=== PATIENT | female | born 1985 | race African-American/Black ===

== ENCOUNTER 2017-09-25 01:10 | Emergency (ER) | payer OTHER, SELFPAY ==
[2017-09-25 01:46] LABS: Hemoglobin 13.9 g/dL (12.0-16.0); Mean Corpuscular HGB CONC 33.4 g/dL (32.0-36.0); Mean Corpuscular Hemoglobin 24.9 pg (27.0-31.0); Mean Corpuscular Volume 74.7 fL (78.0-98.0); Mean Platelet Volume 8.2 fL (7.4-10.4); Platelet Count 295 thou/uL (130-400); RBC Distribution Width 13.8 % (11.5-14.5); Red Blood Cell (RBC) Count 5.58 mill/uL (4.20-5.40); White Blood Cell (WBC) Count 11.3 thou/uL (4.8-10.8)
[2017-09-25 01:57] LABS: #Basophils 0.1 thou/uL (0.0-0.2); #Eosinphils 0.1 thou/uL (0.0-0.7); #Lymphocytes 4.2 thou/uL (1.20-3.40); #Monocytes 0.5 thou/uL (0.11-0.59); #Neutrophils 6.4 thou/uL (1.40-6.50); %Basophils 0.8 % (0.0-1.0); %Eosinophils 1.3 % (0.0-10.0); %Lymphocytes 36.7 % (21.0-51.0); %Monocytes 4.7 % (0.0-10.0); %Neutrophils 56.5 % (42.0-75.0); RBC Morphology Normal
[2017-09-25 02:06] LABS: ALT (SGPT) 17 U/L (8-55); AST (SGOT) 11 U/L (5-34); Albumin 4.4 g/dL (3.5-5.0); Alkaline Phosphatase 101 U/L (40-150); Anion Gap 17 mmol/L (10-20); BUN (Urea Nitrogen) 14 mg/dL (7.0-18.7); Bilirubin, Total 0.5 mg/dL (0.2-1.2); CK (CPK) 72 U/L (29-168); Calc. Creatinine Clearance 0 mL/min (70-130); Calcium 9.8 mg/dL (7.8-10.44); Carbon Dioxide 18 mmol/L (22-29); Chloride 100 mmol/L (98-107); Estimated GFR-MDRD 71; Globulin 3.7 g/dL (2.4-3.5); Glucose 500 mg/dL (70-105); Potassium 3.9 mmol/L (3.5-5.1); Protein, Total 8.1 g/dL (6.0-8.3); Sodium 131 mmol/L (136-145)
[2017-09-25 02:11] LABS: CKMB 0.9 ng/mL (0-6.6); Troponin I Less than 0.010 ng/mL (< 0.028)
[2017-09-25 03:11] LABS: Bilirubin Negative (Negative); Blood, Urine Negative (Negative); Clarity CLEAR (Clear); Glucose, Urine (Dipstick) >=1000 mg/dL (Negative); Leukocyte Negative (Negative); Nitrite Negative (Negative); Protein, Urine (Dipstick) Negative (Neg-Trace); Specific Gravity, Urine 1.043 (1.002-1.036); Urobilinogen 0.2 mg/dL (0.2-1.0)
[2017-09-25 03:13] LABS: Pregnancy Test - Urine (BHCG) Negative (Negative); Pregu Control Background? CLEAR/WHITE (CLR/WHITE); Pregu Control Bar Appear? YES (CONTROL BAR); Specific Gravity 1.043 (1.002-1.036)
[2017-09-25] MEDS ORDERED: Ondansetron HCl/PF 4 MG/2 ML Vial ONE (03:41)
[2017-09-25] MEDS ORDERED: Morphine 4 MG/ML VIAL ONE (03:41)
[2017-09-25 03:46] LABS: Phosphorus 3.4 mg/dL (2.3-4.7)
[2017-09-25] MEDS ORDERED: Fentanyl 100 MCG/2 ML VIAL ONE (03:57)
[2017-09-25 04:16] LABS: Base Excess-Venous -2.1 mmol/L (0 (+/- 2.5)); Bicarbonate (HCO3v) 24.2 mmol/L (1.0-85.0); CO2 Tension (PvCO2) 45.8 mmHg (41.0-51.0); Calcium, Ionized 1.14 mmol/L (1.12-1.32); Hemoglobin - Calc 14.8 g/dL (12.0-18.0); O2 Tension (PvO2) 36.9 mmHg (35.0-45.0); T. Carbon Dioxide 25.6 mmol/L (1.0-85.0); pH (Venous) 7.331 (7.35-7.45)
--- NOTE | 2017-09-25 10:56 | CT ---
PRELIMINARY REPORT/[facility]/EMERGENTY AFTER-HOURS PROCEDURE CT Angiography Chest With Intravenous Contrast CLINICAL HISTORY: 32 years old, female; Left-sided chest pain; SOB onset of 2-3 days ago. TECHNIQUE: Axial computed tomographic angiography images of the chest with intravenous contrast using pulmonary embolism protocol. All CT scans at this facility use at least one of these dose optimization techniqu es: automated exposure control; mA and/or kV adjustment per patient size (includes targeted exams where dose is matched to clinical indication); or iterative reconstruction. MIP reconstructed i mages were created and reviewed. COMPARISON: No relevant prior studies available. FINDINGS: Pulmonary arteries: No acute findings. No pulmonary embolism. Aorta: No acute findings. No thoracic aortic aneurysm. Lungs: No acute findings. No mass. No consolidation. Pleural space: No acute findings. No significant effusion. No pneumothorax. Heart: No acute findings. No cardiomegaly. No significant pericardial effusion. No evidence of RV dys function. Bones/joints: No acute fracture. No dislocation. Soft tissues: No acute findings. Lymph nodes: No acute findings. No enlarged lymph nodes. Upper abdomen: Liver demonstrates fatty infiltration without visible focal mass. IMPRESSION: No pulmonary embolism. No acute thoracic disease. Fatty liver. Thank you for allowing us to participate in the care of your patient. Dictated and Authenticated by: Lucien Luciano MD 09/25/2017 6:27 AM Central Time ([place] & [place]) FINAL REPORT CTA CHEST WITH 3D VOLUME RENDERING: Date: 09/25/17 FINDINGS/IMPRESSION: I agree with the above provided preliminary interpretation from [facility]. There is no evidence of a significant, central pulmonary embolus. Incidental note of hepatic steatosis. Correlate clinically. POS: [facility]
[2017-09-25] MEDS ORDERED: ISOVUE-370 76%-LOCM 1 ML ONE (13:25)
== END 2017-09-25 06:58 | disposition home or self-care (01) ==
LOC: ERS 01:10
DX: R07.89 Other chest pain (principal); R11.2 Nausea with vomiting, unspecified; Z79.4 Long term (current) use of insulin
CPT/HCPCS: 36415; 36416; 71275; 80053; 81003; 81025; 82010; 82330; 82550; 82553; 82803; 83735; 84100; 84484; 85025; 93005; 94760; 96361; 96374; 96375; J2270; J2405; J3010

== ENCOUNTER 2017-09-26 23:51 | Emergency (ER) | payer SELFPAY | END 2017-09-27 00:19 | disposition left against medical advice (07) | LOC: ERS 23:51 | DX: Z53.21 Procedure and treatment not carried out due to patient leaving prior to being seen by health care provider (principal) | CPT/HCPCS: 93005 ==

== ENCOUNTER 2018-03-05 10:21 | Emergency (ER) | payer SELFPAY | END 2018-03-05 11:20 | disposition home or self-care (01) | LOC: SCSER 10:21 | DX: B34.9 Viral infection, unspecified (principal); E11.9 Type 2 diabetes mellitus without complications; Z79.4 Long term (current) use of insulin | CPT/HCPCS: 99283 ==

== ENCOUNTER 2018-04-10 21:15 | Emergency (ER) | payer SELFPAY ==
[2018-04-10 22:00] LABS: ALT (SGPT) 20 U/L (8-55); AST (SGOT) 13 U/L (5-34); Albumin 4.1 g/dL (3.5-5.0); Alkaline Phosphatase 100 U/L (40-150); Anion Gap 16 mmol/L (10-20); BUN (Urea Nitrogen) 14 mg/dL (7.0-18.7); Bilirubin, Total 0.2 mg/dL (0.2-1.2); CK (CPK) 158 U/L (29-168); Calc. Creatinine Clearance 0 mL/min (70-130); Calcium 9.3 mg/dL (7.8-10.44); Carbon Dioxide 22 mmol/L (22-29); Chloride 103 mmol/L (98-107); Estimated GFR-MDRD 73; Globulin 3.4 g/dL (2.4-3.5); Glucose 321 mg/dL (70-105); Lipase 38 U/L (8-78); Potassium 3.5 mmol/L (3.5-5.1); Protein, Total 7.5 g/dL (6.0-8.3); Sodium 137 mmol/L (136-145)
[2018-04-10 22:02] LABS: Eosinophils 3 % (0-10); Hemoglobin 13.5 g/dL (12.0-16.0); Lymphocytes 48 % (21-51); MDiff Complete? YES; Mean Corpuscular HGB CONC 32.9 g/dL (32.0-36.0); Mean Corpuscular Hemoglobin 24.3 pg (27.0-31.0); Mean Corpuscular Volume 73.8 fL (78.0-98.0); Mean Platelet Volume 8.4 fL (7.4-10.4); Microcytosis SLIGHT = 6-15 cells (100X) (0-5/hpf); Monocytes 5 % (0-10); Neutrophil 42 % (42-75); Platelet Count 311 thou/uL (130-400); RBC Distribution Width 13.8 % (11.5-14.5); Reactive Lymphocytes 1 % (0-10); Red Blood Cell (RBC) Count 5.57 mill/uL (4.20-5.40); White Blood Cell (WBC) Count 10.6 thou/uL (4.8-10.8)
--- NOTE | 2018-04-10 22:29 | RAD ---
UPRIGHT PORTABLE CHEST ONE VIEW: 04/10/18 HISTORY: Chest pain. COMPARISON: 12/01/13. FINDINGS: Heart size is within normal limits. The lungs are clear. No pneumonia, edema, pleural effusion or oth er acute process. IMPRESSION: No acute intrathoracic disease. POS: [facility]
== END 2018-04-10 22:25 | disposition home or self-care (01) ==
LOC: SCSER 21:15
DX: R07.89 Other chest pain (principal); E11.9 Type 2 diabetes mellitus without complications; Z79.4 Long term (current) use of insulin
CPT/HCPCS: 71045; 80053; 82550; 82553; 83690; 84484; 85025; 85379; 93005

== ENCOUNTER 2018-07-05 21:25 | Emergency (ER) | payer SELFPAY ==
--- NOTE | 2018-07-05 22:43 | RAD ---
Radiograph right knee 4 views: HISTORY: 33-year-old female with persistent posttraumatic right knee pain after twisting injury one month ago FINDINGS: No fracture, subluxation, or dislocation. Small enthesophytes at the anterior superior pole and anter ior inferior pole of the patella. Joint spaces are maintained without erosions or osteophytes. Small joint effusion. No other osseous abnormality. IMPRESSION: 1. No fracture. 2. Small joint effusion.
== END 2018-07-05 23:05 | disposition home or self-care (01) ==
LOC: SCSER 21:25
DX: M25.561 Pain in right knee (principal); E11.9 Type 2 diabetes mellitus without complications; Z79.4 Long term (current) use of insulin

== ENCOUNTER 2018-07-14 07:26 | Emergency (ER) | payer SELFPAY | END 2018-07-14 07:58 | disposition home or self-care (01) | LOC: SCSER 07:26 | DX: R11.2 Nausea with vomiting, unspecified (principal); R19.7 Diarrhea, unspecified; E11.9 Type 2 diabetes mellitus without complications; Z79.4 Long term (current) use of insulin | CPT/HCPCS: 99283 ==

== ENCOUNTER 2018-07-21 07:34 | Emergency (ER) | payer SELFPAY ==
[2018-07-21] MEDS ORDERED: Ketorolac Tromethamine 30 MG/ML VIAL ONE (07:58)
== END 2018-07-21 09:31 | disposition home or self-care (01) ==
LOC: SCSER 07:34
DX: R51 Headache (principal); E11.9 Type 2 diabetes mellitus without complications; Z79.4 Long term (current) use of insulin
CPT/HCPCS: 96361; 96374; J1885

== ENCOUNTER 2018-08-04 16:27 | Emergency (ER) | payer SELFPAY ==
[2018-08-04] MEDS ORDERED: Bacitracin Zinc 1 Packet ONE (17:31)
== END 2018-08-04 17:49 | disposition home or self-care (01) ==
LOC: SCSER 16:27
DX: E11.621 Type 2 diabetes mellitus with foot ulcer (principal); L97.529 Non-pressure chronic ulcer of other part of left foot with unspecified severity; Z79.4 Long term (current) use of insulin; I10 Essential (primary) hypertension
CPT/HCPCS: 99282

== ENCOUNTER 2018-12-24 09:56 | Emergency (ER) | payer SELFPAY ==
[2018-12-24 10:54] LABS: Hemoglobin 14.9 g/dL (12.0-16.0); Mean Corpuscular HGB CONC 31.8 g/dL (32.0-36.0); Mean Corpuscular Hemoglobin 24.3 pg (27.0-31.0); Mean Corpuscular Volume 76.4 fL (78.0-98.0); Mean Platelet Volume 8.3 fL (7.4-10.4); Platelet Count 317 thou/uL (130-400); RBC Distribution Width 13.2 % (11.5-14.5); Red Blood Cell (RBC) Count 6.12 mill/uL (4.20-5.40); White Blood Cell (WBC) Count 10.2 thou/uL (4.8-10.8)
[2018-12-24 10:59] LABS: #Basophils 0.1 thou/uL (0.0-0.2); #Eosinphils 0.1 thou/uL (0.0-0.7); #Monocytes 0.6 thou/uL (0.11-0.59); #Neutrophils 6.4 thou/uL (1.40-6.50); %Basophils 1.2 % (0.0-1.0); %Eosinophils 1.4 % (0.0-10.0); %Lymphocytes 29.2 % (21.0-51.0); %Monocytes 5.6 % (0.0-10.0); %Neutrophils 62.8 % (42.0-75.0); MDiff Complete? YES; Microcytosis SLIGHT = 6-15 cells (100X) (0-5/hpf); Ovalocytes SLIGHT = 2-5 cells (100X) (0-1/hpf); Platelet Morphology Comment Appears Adequate; Polychromasia SLIGHT = 2-3 cells (100X) (0-2/hpf)
--- NOTE | 2018-12-24 11:00 | RAD ---
PORTABLE CHEST 1 VIEW: Date: 12/24/18 Time: 1018 hours HISTORY: Chest pain. FINDINGS: Comparison made with exam of 04/10/18. The heart size is normal. The lungs are expanded without focal areas of consolidation, pneumothoraces , or pleural effusions. IMPRESSION: No radiographic evidence of acute cardiopulmonary process. POS: [facility]
[2018-12-24 11:03] LABS: ALT (SGPT) 23 U/L (8-55); AST (SGOT) 16 U/L (5-34); Albumin 4.4 g/dL (3.5-5.0); Alkaline Phosphatase 103 U/L (40-110); Anion Gap 16 mmol/L (10-20); BUN (Urea Nitrogen) 12 mg/dL (7.0-18.7); Bilirubin, Total 0.2 mg/dL (0.2-1.2); Calc. Creatinine Clearance 0 mL/min (70-130); Calcium 9.4 mg/dL (7.8-10.44); Carbon Dioxide 23 mmol/L (22-29); Chloride 102 mmol/L (98-107); Estimated GFR-MDRD 79; Globulin 3.3 g/dL (2.4-3.5); Glucose 375 mg/dL (70-105); Potassium 3.7 mmol/L (3.5-5.1); Protein, Total 7.7 g/dL (6.0-8.3); Sodium 137 mmol/L (136-145)
== END 2018-12-24 11:53 | disposition home or self-care (01) ==
LOC: SCSER 09:56
DX: E11.65 Type 2 diabetes mellitus with hyperglycemia (principal); E86.0 Dehydration; Z79.4 Long term (current) use of insulin; D64.9 Anemia, unspecified
CPT/HCPCS: 36416; 71045; 80053; 84484; 85025; 93005; 96360

== ENCOUNTER 2019-03-29 17:24 | Emergency (ER) | payer SELFPAY ==
--- NOTE | 2019-03-29 19:29 | RAD ---
Exam: Chest one view HISTORY:Chest pain. Headache. Comparison: 12/24/2018 FINDINGS: Cardiac silhouette: Normal Aorta: Unremarkable Pulmonary vessels: Normal Costophrenic angles: Clear LUNGS: No masses or consolidation. Pneumothorax: None Osseous abnormalities: None IMPRESSION: No acute cardiopulmonary process.
[2019-03-29 19:36] LABS: #Eosinphils 0.3 thou/uL (0.0-0.7); #Monocytes 0.6 thou/uL (0.11-0.59); #Neutrophils 8.1 thou/uL (1.40-6.50); %Basophils 0.2 % (0.0-1.0); %Eosinophils 2.2 % (0.0-10.0); %Lymphocytes 24.8 % (21.0-51.0); %Neutrophils 67.9 % (42.0-75.0); Hemoglobin 12.3 g/dL (12.0-16.0); Mean Corpuscular Hemoglobin 24.8 pg (27.0-31.0); Mean Corpuscular Volume 77.4 fL (78.0-98.0); Mean Platelet Volume 8.2 fL (7.4-10.4); Platelet Count 324 thou/uL (130-400); Red Blood Cell (RBC) Count 4.99 mill/uL (4.20-5.40)
[2019-03-29 19:47] LABS: Bilirubin Negative (Negative); Blood, Urine Negative (Negative); Clarity Clear (Clear); Glucose, Urine (Dipstick) Normal (Negative); Leukocyte Negative Leu/uL (Negative); Nitrite Negative (Negative); Protein, Urine (Dipstick) Negative (Neg-Trace); Urobilinogen Normal mg/dL (Less than 2)
[2019-03-29 19:51] LABS: Pregnancy Test - Urine (BHCG) Negative (Negative); Specific Gravity 1.007 (1.002-1.036)
[2019-03-29 19:52] LABS: Pregu Control Background? CLEAR/WHITE (CLR/WHITE); Pregu Control Bar Appear? YES (CONTROL BAR)
[2019-03-29] MEDS ORDERED: Ketorolac Tromethamine 30 MG/ML VIAL ONE (19:55)
[2019-03-29] MEDS ORDERED: Meclizine HCl 25 MG TAB ONE (19:59)
[2019-03-29 20:11] LABS: ALT (SGPT) 19 U/L (8-55); AST (SGOT) 13 U/L (5-34); Albumin 4.2 g/dL (3.5-5.0); Alkaline Phosphatase 80 U/L (40-110); Anion Gap 13 mmol/L (10-20); BUN (Urea Nitrogen) 7 mg/dL (7.0-18.7); Bilirubin, Total 0.4 mg/dL (0.2-1.2); Calcium 9.3 mg/dL (7.8-10.44); Carbon Dioxide 22 mmol/L (22-29); Chloride 108 mmol/L (98-107); Globulin 2.9 g/dL (2.4-3.5); Glucose 201 mg/dL (70-105); Potassium 3.7 mmol/L (3.5-5.1); Protein, Total 7.1 g/dL (6.0-8.3); Sodium 139 mmol/L (136-145)
[2019-03-29 20:12] LABS: Calc. Creatinine Clearance 0 mL/min (70-130); Estimated GFR-MDRD Greater than 90
--- NOTE | 2019-03-29 20:37 | CT ---
Exam: Head CT without contrast HISTORY: Syncope, dizziness, headache COMPARISON: 08/06/2012 FINDINGS: Hemorrhage: No intraparenchymal hemorrhage or extra-axial hematoma. Brain parenchyma: Cortical alan-white matter differentiation is preserved. No mass effect or midline shift. Basilar cisterns are patent. Ventricular system: Ventricles and sulci are patent and symmetric. Calvarium: Intact. Sinuses and mastoid air cells: Adequate aeration. IMPRESSION: No acute intracranial process.
[2019-03-29 22:23] LABS: Troponin I Less than 0.010 ng/mL (< 0.028)
== END 2019-03-29 22:52 | disposition home or self-care (01) ==
LOC: ERS 17:24
DX: G43.909 Migraine, unspecified, not intractable, without status migrainosus (principal); R07.9 Chest pain, unspecified; R55 Syncope and collapse; R42 Dizziness and giddiness; E10.9 Type 1 diabetes mellitus without complications; D64.9 Anemia, unspecified; I10 Essential (primary) hypertension; Z79.899 Other long term (current) drug therapy
CPT/HCPCS: 36415; 70450; 71045; 80053; 81003; 81025; 84484; 85025; 85379; 93005; 96361; 96374; J1885; J8597

== ENCOUNTER 2019-04-07 01:44 | Emergency (ER) | payer SELFPAY ==
[2019-04-07] MEDS ORDERED: traMADol HCl 50 MG TAB ONE (03:44)
== END 2019-04-07 04:00 | disposition home or self-care (01) ==
LOC: ERS 01:44
DX: E11.649 Type 2 diabetes mellitus with hypoglycemia without coma (principal); I10 Essential (primary) hypertension; D64.9 Anemia, unspecified; Z79.899 Other long term (current) drug therapy; Z79.4 Long term (current) use of insulin
CPT/HCPCS: 36416; 99284

== ENCOUNTER 2019-04-15 14:24 | Inpatient (IN) | payer SELFPAY ==
[~2019-04-15 14:24] MED LIST: Iopamidol-370 76% 500 ML 1 ML ONE
[2019-04-15] MEDS ORDERED: Ondansetron PF 4 MG/2 ML Vial ONE ×2 (14:53→14:58)
[2019-04-15] MEDS ORDERED: Ibuprofen 800 MG TAB ONE ×3 (14:53→14:59)
[2019-04-15 15:00] LABS: #Lymphocytes 0.5 thou/uL (1.20-3.40); #Monocytes 0.3 thou/uL (0.11-0.59); #Neutrophils 10.5 thou/uL (1.40-6.50); %Basophils 0.1 % (0.0-1.0); %Eosinophils 0.1 % (0.0-10.0); %Lymphocytes 4.8 % (21.0-51.0); %Monocytes 2.7 % (0.0-10.0); %Neutrophils 92.4 % (42.0-75.0); Hemoglobin 13.4 g/dL (12.0-16.0); Mean Corpuscular HGB CONC 33.1 g/dL (32.0-36.0); Mean Corpuscular Hemoglobin 25.4 pg (27.0-31.0); Mean Corpuscular Volume 76.9 fL (78.0-98.0); Mean Platelet Volume 7.7 fL (7.4-10.4); Platelet Count 326 thou/uL (130-400); RBC Distribution Width 13.7 % (11.5-14.5); Red Blood Cell (RBC) Count 5.25 mill/uL (4.20-5.40); White Blood Cell (WBC) Count 11.4 thou/uL (4.8-10.8)
[2019-04-15 15:09] LABS: BHCG - Serum Negative (NEGATIVE); Pregs Control Background? CLEAR/WHITE (CLR/WHITE); Pregs Control Bar Appear? YES (CONTROL BAR)
[2019-04-15 15:19] LABS: Lipase 18 U/L (8-78); Magnesium 1.5 mg/dL (1.6-2.6); Phosphorus 2.9 mg/dL (2.3-4.7)
[2019-04-15] MEDS ORDERED: Cefepime 2 GM VIAL ONE (15:19)
--- NOTE | 2019-04-15 15:19 | RAD ---
PORTABLE CHEST: Date: 04/15/2019 HISTORY: Syncope. High blood pressure. COMPARISON: 03/29/2019 study. FINDINGS: Heart size and mediastinum within normal limits. Lungs are clear of infiltrates. No significant bony findings. IMPRESSION: No active intrathoracic disease. POS: [facility]
[2019-04-15] MEDS ORDERED: Sodium Chloride 0.9% 100 ML ONE (15:20)
[2019-04-15 15:26] LABS: ALT (SGPT) 65 U/L (8-55); AST (SGOT) 49 U/L (5-34); Albumin 4.5 g/dL (3.5-5.0); Alkaline Phosphatase 97 U/L (40-110); Anion Gap 14 mmol/L (10-20); BUN (Urea Nitrogen) 7 mg/dL (7.0-18.7); Bilirubin, Total 0.4 mg/dL (0.2-1.2); Calc. Creatinine Clearance 0 mL/min (70-130); Calcium 9.4 mg/dL (7.8-10.44); Carbon Dioxide 26 mmol/L (22-29); Chloride 99 mmol/L (98-107); Estimated GFR-MDRD 81; Globulin 3.5 g/dL (2.4-3.5); Glucose 147 mg/dL (70-105); Sodium 136 mmol/L (136-145)
[2019-04-15 15:50] LABS: Bilirubin Negative (Negative); Blood, Urine Negative (Negative); Clarity Clear (Clear); Glucose, Urine (Dipstick) Normal (Negative); Leukocyte Negative Leu/uL (Negative); Mucous/LPF 1+ LPF (<2+); Nitrite Negative (Negative); Protein, Urine (Dipstick) 30 mg/dL (Neg-Trace); RBC/HPF 0-3 HPF (0-3); Urobilinogen Normal mg/dL (Less than 2)
[2019-04-15 15:52] LABS: Bacteria/HPF 1+ HPF (None Seen)
[2019-04-15] MEDS ORDERED: metroNIDAZOLE 500 MG/100 ML BAG ONE (16:01)
[2019-04-15 16:24] LABS: Bicarbonate (HCO3v) 24.2 mmol/L (22.0-28.0); CO2 Tension (PvCO2) 37.2 mmHg (40.0-50.0); Calcium, Ionized 1.09 mmol/L (See Comments:); Chloride 101 mmol/L (98-107); Sodium 137 mmol/L (138-145); T. Carbon Dioxide 25.4 mmol/L (22.0-28.0); vO2 Saturation-calc 87.4 % (60.0-85.0)
--- NOTE | 2019-04-15 16:38 | CT ---
CT abdomen and pelvis with IV contrast HISTORY: Abdominal pain. Body aches. FINDINGS: Lung bases are clear. Liver remains diffusely hypodense. Small amount of hyperdense materia l now layers within the dependent portion of the gallbladder fundus. No evidence of bowel obstruction. Urinary bladder is unremarkable. At the expected location of the left adnexa, an oval well-circumscribed fluid density lesion is 3.3 c m greatest oblique diameter. No free air or free fluid. IMPRESSION: Right ovarian cyst 3.3 cm. Small amount of biliary sludge within the gallbladder lumen is consistent with chronic gallbladder dy skinesis. No evidence of acute biliary obstruction.
--- NOTE | 2019-04-15 16:47 | ULT ---
GALLBLADDER ULTRASOUND: 04/15/19 HISTORY: Right upper quadrant pain. Real time imaging of the right upper quadrant shows sludge within the gallbladder fundus region. No s tones identified. No gallbladder wall thickening. Technologist states there is a negative ultrasound Lorenzo's sign. Common duct is 4 mm. The liver is of increased echogenicity. It measures approximately 18 cm in length. Right kidney is normal in size and not obstructed. The pancreas is largely obscured. IMPRESSION: 1. Fatty change of the liver which appears borderline size. 2. Sludge within the gallbladder fundus region without any definite stones. Common duct is tanesha l in caliber in the 4 mm range. POS: [facility]
--- NOTE | 2019-04-15 18:22 | PDOC.FPRHP ---
- Allergies/Adverse Reactions Allergies Allergy/AdvReac Type Severity Reaction Status Date / Time apple Allergy Verified 11/27/13 16:09 aspirin Allergy Verified 11/27/13 16:07 blueberry Allergy Verified 11/27/13 16:09 codeine Allergy Verified 11/27/13 16:09 ibuprofen [From Motrin] Allergy Verified 11/27/13 16:09 lemon Allergy Verified 11/27/13 16:09 morphine Allergy Verified 11/27/13 16:09 orange juice Allergy Verified 11/27/13 16:09 Penicillins Allergy Verified 11/27/13 16:09 strawberry Allergy Verified 11/27/13 16:09 KETCHUP Allergy Uncoded 11/27/13 16:09 LIMES Allergy Uncoded 11/27/13 16:09 - Home Medications Medication Instructions Recorded Confirmed Type Insulin Glargine,Hum.Rec.Anlog 20 unit SQ HS #5 pen 11/29/13 Rx [Lantus Solostar] glyBURIDE [Diabeta] 5 mg PO BID #60 tab 11/29/13 Rx metFORMIN [Glucophage] 1,000 mg PO BID-WM #60 tab 11/29/13 Rx - History PMHx: PSHx: FHx: Social: - Vital signs BP: 140/91 HR: 119 RR: 17 Tmax: 99.7 Pox: 97% on RA Wt: 102 kg FMR H&P: Results - Labs Result Diagrams: 04/15/19 14:41 04/15/19 14:41 Lab results: WBC 11.4 thou/uL (4.8-10.8) H 04/15/19 14:41 Hgb 13.4 g/dL (12.0-16.0) 04/15/19 14:41 Hct 40.4 % (36.0-47.0) 04/15/19 14:41 MCV 76.9 fL (78.0-98.0) L 04/15/19 14:41 Plt Count 326 thou/uL (130-400) 04/15/19 14:41 Neutrophils % 92.4 % (42.0-75.0) H 04/15/19 14:41 VBG pCO2 37.2 mmHg (40.0-50.0) L 04/15/19 16:22 VBG pO2 52.3 mmHg (35.0-45.0) H 04/15/19 16:22 Sodium 136 mmol/L (136-145) 04/15/19 14:41 Potassium 3.0 mmol/L (3.5-5.1) L 04/15/19 14:41 Chloride 99 mmol/L (98-107) 04/15/19 14:41 Carbon Dioxide 26 mmol/L (22-29) 04/15/19 14:41 BUN 7 mg/dL (7.0-18.7) 04/15/19 14:41 Creatinine 0.95 mg/dL (0.6-1.1) 04/15/19 14:41 Glucose 147 mg/dL (70-105) H 04/15/19 14:41 Lactic Acid 1.1 mmol/L (0.5-2.2) 04/15/19 14:41 Calcium 9.4 mg/dL (7.8-10.44) 04/15/19 14:41 Total Bilirubin 0.4 mg/dL (0.2-1.2) 04/15/19 14:41 AST 49 U/L (5-34) H 04/15/19 14:41 ALT 65 U/L (8-55) H 04/15/19 14:41 Alkaline Phosphatase 97 U/L (40-110) 04/15/19 14:41 Serum Total Protein 8.0 g/dL (6.0-8.3) 04/15/19 14:41 Albumin 4.5 g/dL (3.5-5.0) 04/15/19 14:41 Lipase 18 U/L (8-78) 04/15/19 14:43 Urine Ketones Negative mg/dL (Negative) 04/15/19 15:15 Urine Blood Negative (Negative) 04/15/19 15:15 Urine Nitrite Negative (Negative) 04/15/19 15:15 Ur Leukocyte Esterase Negative Zhou/uL (Negative) 04/15/19 15:15 Urine RBC 0-3 HPF (0-3) 04/15/19 15:15 Urine WBC 4-6 HPF (0-3) A 04/15/19 15:15 Ur Squamous Epith Cells 4-6 HPF (0-3) A 04/15/19 15:15 Urine Bacteria 1+ HPF (None Seen) A 04/15/19 15:15 - Radiology Interpretation US - abdomen Status: image reviewed by me, report reviewed by me Additional comment: sludge in gallbladder, normal CBD CT scan - abdomen Status: report reviewed by me Additional comment: R ovarian cyst Chest x-ray Status: image reviewed by me Additional comment: WNL, no acute abnormalities FMR H&P: Upper Level - Plan Date/Time: 04/15/191821 I, [], have evaluated this patient and agree with findings/plan as outlined by inclusion internship resident. Pertinent changes/additions are listed here.
[2019-04-15] MEDS ORDERED: Ondansetron ODT 4 MG TAB SL PRN (19:14)
[2019-04-15] MEDS ORDERED: Ondansetron PF 4 MG/2 ML Vial IVP PRN (19:14)
[2019-04-15] MEDS ORDERED: Dextrose 50% Abboject 50 ML SYRINGE SLOW IVP PRN (19:36)
[2019-04-15] MEDS ORDERED: HumaLOG 300 UNITS/3 ML VIAL SC PRN (19:36)
[2019-04-15] MEDS ORDERED: Dextrose 5% in Water 1,000 ML IV PRN (19:36)
[2019-04-15] MEDS ORDERED: Potassium Chloride 20 MEQ TAB PO SCH (20:06)
[2019-04-15] MEDS ORDERED: Ondansetron ODT 4 MG TAB PO PRN (20:06)
[2019-04-15 20:28] VITALS: BMI 39.1
[2019-04-15] MEDS: Sodium Chloride 0.9% 1,000 ML IV SCH (21:07)
[2019-04-15] MEDS: Acetaminophen 325 MG TAB PO PRN (22:12)
--- NOTE | 2019-04-15 22:24 | PDOC.FPRHP ---
- History of Present Illness Chief Complaint: feeling bad History of Present Illness: Pt presents with couple day history of diffuse myalgias, fever, chills, and general malaise. She believes she was feeling bad for ~3 weeks but worsened yesterday. Last week she had her metformin increased to 1000 mg bid and has had some stomach upset and diarrhea since then. +vomiting. No melena, hematochezia. No ST, headache, ear pain, chest pain, shortness of breath. ED Course: Given IVF, cefepime, flagyl - Allergies/Adverse Reactions Allergies Allergy/AdvReac Type Severity Reaction Status Date / Time codeine Allergy Severe Anaphylaxis Verified 04/15/19 20:18 morphine Allergy Severe Anaphylaxis Verified 04/15/19 20:18 Penicillins Allergy Severe Anaphylaxis Verified 04/15/19 20:18 acetaminophen [From Tylenol] Allergy Mild Verified 04/15/19 20:20 apple Allergy Mild Hives Verified 04/15/19 20:18 aspirin Allergy Mild Verified 04/15/19 20:20 blueberry Allergy Mild Hives Verified 04/15/19 20:18 chocolate flavor Allergy Mild Hives Verified 04/16/19 04:53 ibuprofen [From Motrin] Allergy Mild Verified 04/15/19 20:20 lemon Allergy Mild Hives Verified 04/15/19 20:18 orange juice Allergy Mild Hives Verified 04/15/19 20:18 strawberry Allergy Mild Hives Verified 04/15/19 20:18 influenza virus vaccine, Allergy Verified 04/15/19 22:53 specific KETCHUP Allergy Mild Hives Uncoded 04/15/19 20:18 LIMES Allergy Mild Hives Uncoded 04/15/19 20:18 - Home Medications Medication Instructions Recorded Confirmed Type Diltiazem HCl [Dilt-XR] 180 mg PO DAILY 04/15/19 04/15/19 History Ferrous Sulfate [Iron] 325 mg PO DAILY 04/15/19 04/15/19 History Insulin NPH Hum/Reg Insulin HM 100 unit SQ SEEPHYS 04/15/19 04/15/19 History [Novolin 70/30] Lisinopril 2.5 mg PO DAILY 04/15/19 04/15/19 History Pnv No.95/Ferrous Fum/Folic AC 1 each PO DAILY 04/15/19 04/15/19 History [ Caplet] metFORMIN [Glucophage] 1,000 mg PO DAILY 04/15/19 04/15/19 History - History PMHx: HTN DM2 Obesity Blood clots (peripartum) Seizures PSHx: D&C FHx: CAD CVA DM HTN Social: Denies WILBER - Review of Systems General: reports: fever/chills, fatigue Eyes: denies: eye pain, vision changes ENT: denies: nasal congestion, rhinorrhea Respiratory: denies: cough, congestion, shortness of breath Cardiovascular: denies: chest pain, palpitation, orthopnea Gastrointestinal: reports: nausea, vomiting, diarrhea. denies: constipation, abdominal pain Genitourinary: denies: incontinence, dysuria, polyuria, discharge Skin: denies: rashes, lesions, jaundice Musculoskeletal: denies: pain, tenderness, stiffness Neurological: denies: numbness, syncope, seizure Psychological: denies: anxiety, depression - Vital signs BP: 145/85 HR: 128 RR: 24 Tmax: 102.8 Pox: 99% on RA Wt: 103.476 kg - Physical Exam Constitutional: NAD, awake, alert and oriented, well developed HEENT: normocephalic and atraumatic, PERRLA, EOMI, conjunctiva clear Neck: supple, FROM, no LAD Chest: no-tender to palpation Heart: RRR, normal S1/S2, no murmurs/rubs/gallops Lungs: CTAB, no respiratory distress, good air movement, no rales/rhonchi, no wheezing, no retractions Abdomen: soft, non-tender, bowel sounds present, no masses/distention Musculoskeletal: normal structure, normal tone, ROM grossly normal Neurological: no focal deficit, CN II-XII intact, normal sensation Skin: no rash/lesions, good turgor, capillary refill <2 seconds Heme/Lymphatic: no unusual bruising or bleeding, no purpura, no petechia Psychiatric: normal mood and affect, good judgment and insight, intact recent and remote memory FMR H&P: Results - Labs Result Diagrams: 04/16/19 05:38 04/16/19 05:38 Lab results: WBC 11.4 thou/uL (4.8-10.8) H 04/15/19 14:41 Hgb 13.4 g/dL (12.0-16.0) 04/15/19 14:41 Hct 40.4 % (36.0-47.0) 04/15/19 14:41 MCV 76.9 fL (78.0-98.0) L 04/15/19 14:41 Plt Count 326 thou/uL (130-400) 04/15/19 14:41 Neutrophils % 92.4 % (42.0-75.0) H 04/15/19 14:41 ESR Westergren 37 mm/hr (Less than 20) 04/15/19 21:05 VBG pCO2 37.2 mmHg (40.0-50.0) L 04/15/19 16:22 VBG pO2 52.3 mmHg (35.0-45.0) H 04/15/19 16:22 Sodium 136 mmol/L (136-145) 04/15/19 14:41 Potassium 3.0 mmol/L (3.5-5.1) L 04/15/19 14:41 Chloride 99 mmol/L (98-107) 04/15/19 14:41 Carbon Dioxide 26 mmol/L (22-29) 04/15/19 14:41 BUN 7 mg/dL (7.0-18.7) 04/15/19 14:41 Creatinine 0.95 mg/dL (0.6-1.1) 04/15/19 14:41 Glucose 147 mg/dL (70-105) H 04/15/19 14:41 Lactic Acid 1.1 mmol/L (0.5-2.2) 04/15/19 14:41 Calcium 9.4 mg/dL (7.8-10.44) 04/15/19 14:41 Total Bilirubin 0.4 mg/dL (0.2-1.2) 04/15/19 14:41 AST 49 U/L (5-34) H 04/15/19 14:41 ALT 65 U/L (8-55) H 04/15/19 14:41 Alkaline Phosphatase 97 U/L (40-110) 04/15/19 14:41 Serum Total Protein 8.0 g/dL (6.0-8.3) 04/15/19 14:41 Albumin 4.5 g/dL (3.5-5.0) 04/15/19 14:41 Lipase 18 U/L (8-78) 04/15/19 14:43 Urine Ketones Negative mg/dL (Negative) 04/15/19 15:15 Urine Blood Negative (Negative) 04/15/19 15:15 Urine Nitrite Negative (Negative) 04/15/19 15:15 Ur Leukocyte Esterase Negative Zhou/uL (Negative) 04/15/19 15:15 Urine RBC 0-3 HPF (0-3) 04/15/19 15:15 Urine WBC 4-6 HPF (0-3) A 04/15/19 15:15 Ur Squamous Epith Cells 4-6 HPF (0-3) A 04/15/19 15:15 Urine Bacteria 1+ HPF (None Seen) A 04/15/19 15:15 - Radiology Interpretation Chest x-ray Status: report reviewed by me (No acute process) US - abdomen Status: report reviewed by me (GB sludge, normal CBD, negative barks[place]) CT scan - abdomen Status: report reviewed by me (3.3 cm ovarian cyst, gallbladder sludge) FMR H&P: A/P - Problem List (1) Essential hypertension Current Visit: Yes Status: Acute Code(s): I10 - ESSENTIAL (PRIMARY) HYPERTENSION (2) Obesity (BMI 30-39.9) Current Visit: Yes Status: Acute Code(s): E66.9 - OBESITY, UNSPECIFIED (3) Sepsis Current Visit: Yes Status: Acute Code(s): A41.9 - SEPSIS, UNSPECIFIED ORGANISM (4) Ovarian cyst Current Visit: Yes Status: Acute Code(s): N83.209 - UNSPECIFIED OVARIAN CYST , UNSPECIFIED SIDE (5) Gallbladder sludge Current Visit: Yes Status: Acute Code(s): K82.8 - OTHER SPECIFIED DISEASES OF GALLBLADDER (6) History of DVT (deep vein thrombosis) Current Visit: Yes Status: Acute Code(s): Z86.718 - PERSONAL HISTORY OF OTHER VENOUS THROMBOSIS AND EMBOLISM (7) History of seizure Current Visit: Yes Status: Acute Code(s): Z87.898 - PERSONAL HISTORY OF OTHER SPECIFIED CONDITIONS (8) Diabetes mellitus with insulin therapy Current Visit: Yes Status: Acute Code(s): E11.9 - TYPE 2 DIABETES MELLITUS WITHOUT COMPLICATIONS; Z79.4 - [facility] (CURRENT) USE OF INSULIN - Plan Sepsis without source -continue antibiotics -await cultures -send RVP -consider stool studies if diarrhea, possibly just AGE -MIVF -zofran PRN DM, insulin dependent -restart 70/30, hold metformin HTN -continue home meds h/o DVT -monitor clinically DVT ppx with lovenox GI ppx with diet FMR H&P: Upper Level - Plan Date/Time: 04/15/19 1531 I, [], have evaluated this patient and agree with findings/plan as outlined by internship resident. Pertinent changes/additions are listed here. Addendum - Attending - Attending Attestation Date/Time: 04/16/19 1239 I personally evaluated the patient and discussed the management with Dr. Almaraz. I agree with the History, Examination, Assessment and Plan documented above with any addition or exceptions noted below.
[2019-04-15] MEDS ORDERED: traMADol HCl 50 MG TAB PO SCH (23:45)
[2019-04-15] MEDS: Ibuprofen 600 MG TAB PO PRN (23:48)
[2019-04-15] MEDS ORDERED: metroNIDAZOLE 500 MG in Premix Bag 1 BAG IVPB SCH (23:59)
[2019-04-16] MEDS: Vancomycin 1.5 GRAM/300 ML BAG 1.5 GM in Premix Bag 1 BAG IVPB SCH ×3 (00:41→17:23)
[2019-04-16] MEDS: Cefepime 2 GM in Sodium Chloride 0.9% 100 ML IVPB SCH ×2 (03:08→15:02)
[2019-04-16] MEDS: Sodium Chloride 0.9% 1,000 ML IV SCH (03:11)
[2019-04-16] MEDS: metroNIDAZOLE 500 MG in Premix Bag 1 BAG IVPB SCH ×2 (03:49→16:26)
--- NOTE | 2019-04-16 06:05 | PDOC.FM ---
- Subjective Subjective: Doing well this morning, no acute events overnight. No more loose stools, voiding without difficulty, tolerating PO well. No recent travel, no pets at home, no recent outdoor work, no known sick contacts, no dysuria, no skin lesions, no mouth or dental pain, no history of serious infections, no LE edema , no SOB/CP. Mild epigastric pain that has since resolved, nausea has resolved with cessation of metformin. No new partners and states was recently tested for STDs and was negative. No vaginal burning, itching or discharge. No respiratory sxs such as cough, congestion, rhinorrhea. - Objective MAR Reviewed: Yes Vital Signs & Weight: Vital Signs (12 hours) Temp Pulse Resp BP Pulse Ox 04/16/19 03:25 97.7 F 96 16 108/74 96 04/15/19 23:23 101.8 F H 115 H 16 126/84 95 04/15/19 22:10 102.1 F H 04/15/19 20:31 98.7 F 105 H 16 102/65 97 04/15/19 19:25 98 04/15/19 19:00 98.6 F 115 H 18 115/75 98 Weight Weight 103.476 kg Result Diagrams: 04/16/19 05:38 04/16/19 05:38 Phys Exam - Physical Examination Constitutional: NAD (resting comfortably, in good spirits) HEENT: moist MMs, sclera anicteric, oral pharynx no lesions Neck: no nodes, supple Respiratory: no wheezing, no rales, no rhonchi, clear to auscultation bilateral Cardiovascular: RRR, no significant murmur, no rub Gastrointestinal: soft, non-tender, no distention, positive bowel sounds Musculoskeletal: no edema, pulses present Neurological: non-focal, normal sensation, moves all 4 limbs Psychiatric: normal affect, A&O x 3 Skin: no rash Deviation from normal: no skin lesions Dx/Plan (1) SIRS (systemic inflammatory response syndrome) Code(s): R65.10 - SIRS OF NON-INFECTIOUS ORIGIN W/O ACUTE ORGAN DYSFUNCTION Status: Acute (2) Diabetes mellitus with insulin therapy Code(s): E11.9 - TYPE 2 DIABETES MELLITUS WITHOUT COMPLICATIONS; Z79.4 - CARE HOME (CURRENT) USE OF INSULIN Status: Acute - Plan Plan: 34yo female with h/o IDDMII, HTN, previous DVT presents with SIRS without a source #SIRS without source - sxs for past 2 days, complaints only of nausea/diarrhea with increase metformin dose last week but this has since resolved with cessation - Mild upper hip and leg pain, chronic in nature, no s/s of septic joints or skin infections - no signs of source of acute infection, flu negative - No pets, recent sick contacts, recent travel - GC/C and resp viral pending. HIV and RPR negative in clinic. - UA not a clean catch with 4-6 squamous and 1+ bacteria without nitrites or leukocytes, UCx pending - BCx pending - Cont cefepime, flagy, and vanc - Consider C diff and stool studies if loose stools cont - MIVF - Consider VTE workup #DM, insulin dependent - cont home 70/30, hold metformin #HTN -continue home meds #h/o DVT - occurred around pregnancies, no current s/s, will monitor and VTE PPX with lovenox PCP: Kenneth DYER Code: Full IVF: NS @150cc/hr Diet: CC VTE: Lovenox Dispo: Sirs without a source, cont workup and cultures pending, cont IV antibiotics, anticipate hospitalization >48 hours. Addendum - Attending - Attending Attestation Date/Time: 04/16/19 8166 I personally evaluated the patient and discussed the management with Dr. Saldana. I agree with the History, Examination, Assessment and Plan documented above with any addition or exceptions noted below. Very low suspicion for VTE as a cause when she seems to have a viral syndrome. DVT ppx is warranted, however. Await RVP and cultures.
[2019-04-16 06:09] LABS: Anion Gap 11 mmol/L (10-20); BUN (Urea Nitrogen) 6 mg/dL (7.0-18.7); Band 12 % (5-11); Calc. Creatinine Clearance 176 mL/min (70-130); Carbon Dioxide 23 mmol/L (22-29); Chloride 109 mmol/L (98-107); Estimated GFR-MDRD Greater than 90; Glucose 97 mg/dL (70-105); Hemoglobin 11.7 g/dL (12.0-16.0); Lymphocytes 9 % (21-51); MDiff Complete? YES; Mean Corpuscular Hemoglobin 25.7 pg (27.0-31.0); Mean Platelet Volume 7.6 fL (7.4-10.4); Monocytes 1 % (0-10); Neutrophil 78 % (42-75); Nucleated RBC 1 % (0); Platelet Count 243 thou/uL (130-400); Platelet Morphology Comment Appears Adequate; Potassium 3.3 mmol/L (3.5-5.1); RBC Distribution Width 13.6 % (11.5-14.5); RBC Morphology Normal; Red Blood Cell (RBC) Count 4.54 mill/uL (4.20-5.40); Sodium 140 mmol/L (136-145); White Blood Cell (WBC) Count 6.2 thou/uL (4.8-10.8)
[2019-04-16] MEDS ORDERED: Potassium Chloride 20 MEQ TAB PO SCH (08:15)
[2019-04-16] MEDS: Magnesium Oxide 400 MG TAB PO SCH ×2 (08:31→21:54)
[2019-04-16] MEDS: Lisinopril 10 MG TAB PO SCH (08:32)
[2019-04-16] MEDS: Enoxaparin Sodium 40 MG/0.4 ML SYRINGE SC SCH (08:32)
[2019-04-16] MEDS ORDERED: Lisinopril 2.5 MG TAB PO SCH (09:00)
[2019-04-16] MEDS ORDERED: HumuLIN 70/30 (300 UNITS/3 ML VIAL) SC SCH (09:00)
[2019-04-16 14:00] LABS: HIV (1/2) Antibody/Antigen Non-Reactive (NonReactive); HIV 1/2 INDEX 0.11 S/CO (<1.00)
[2019-04-16] MEDS: Ibuprofen 600 MG TAB PO PRN (15:02)
[2019-04-16 16:27] LABS: Troponin I Less than 0.010 ng/mL (< 0.028)
[2019-04-17 00:05] LABS: Vancomycin, Trough 18.1 ug/mL
[2019-04-17] MEDS: Vancomycin 1.5 GRAM/300 ML BAG 1.5 GM in Premix Bag 1 BAG IVPB SCH ×2 (01:22→08:51)
[2019-04-17] MEDS: Cefepime 2 GM in Sodium Chloride 0.9% 100 ML IVPB SCH (03:56)
[2019-04-17] MEDS: metroNIDAZOLE 500 MG in Premix Bag 1 BAG IVPB SCH (03:58)
--- NOTE | 2019-04-17 05:38 | PDOC.FM ---
- Subjective Subjective: Doing well this morning. Did have episode of CP yesterday, EKG obtained per primary team. Pain has since resolved. This morning denies any SOB, n/v, fever/ chills, CP, Abd pain, or new sxs. She is eager for discharge. Tolerating PO well , voiding without difficulty, ambulating well. - Objective MAR Reviewed: Yes Vital Signs & Weight: Vital Signs (12 hours) Temp Pulse Resp BP Pulse Ox 04/17/19 04:05 97.7 F 77 16 115/75 97 04/17/19 00:13 98.0 F 76 16 117/78 98 04/16/19 21:01 98.0 F 86 18 110/74 96 04/16/19 20:04 96 Weight Weight 103.476 kg I&O: 04/15/19 04/16/19 04/17/19 06:59 06:59 06:59 Intake Total 2350 3200 Balance 2350 3200 Result Diagrams: 04/17/19 05:44 04/17/19 05:44 Phys Exam - Physical Examination Constitutional: NAD (resting comfortably in bed, good spirits) HEENT: moist MMs Neck: supple Respiratory: no wheezing, no rales, no rhonchi, clear to auscultation bilateral Cardiovascular: RRR, no significant murmur, no rub Gastrointestinal: soft, non-tender, no distention, positive bowel sounds Musculoskeletal: no edema Neurological: moves all 4 limbs Psychiatric: normal affect, A&O x 3 Dx/Plan (1) SIRS (systemic inflammatory response syndrome) Code(s): R65.10 - SIRS OF NON-INFECTIOUS ORIGIN W/O ACUTE ORGAN DYSFUNCTION Status: Acute (2) Diabetes mellitus with insulin therapy Code(s): E11.9 - TYPE 2 DIABETES MELLITUS WITHOUT COMPLICATIONS; Z79.4 - [facility] (CURRENT) USE OF INSULIN Status: Acute - Plan Plan: 34yo female with h/o IDDMII, HTN, previous DVT presents with SIRS without a source #SIRS without source - fever/chills/fatigue 2 days prior to admission, ROS otherwise positive only for nausea and diarrhea 2/2 increased metformin dose which has since resolved - Mild upper hip and leg pain, chronic in nature, no s/s of septic joints or skin infections - no signs of source of acute infection, flu negative, RVP negative - No pets, recent sick contacts, or recent travel - GC/C pending. RPR negative in clinic. HIV negative. - UA not a clean catch with 4-6 squamous and 1+ bacteria without nitrites or leukocytes, UCx NGTD - BCx NGTD - Cont cefepime, flagy, and vanc - consider stopping at negative cultures at 48 hours - Consider C diff and stool studies if loose stools cont - have since resolved - Since fever free for past 24 hours and tachycardiac resolved, suspect viral gastroenteritis, will cont to monitor #Hypokalemia/hypomag - replace and monitor #Non-cardiac Chest pain - Repeat EKG WNL, trop negative, sxs resolved - suspected MSK in nature, will monitor closely #DM, insulin dependent - cont home 70/30, hold metformin - ACHS, hyperglycemic protocol #HTN -continue home meds #h/o DVT - occurred around pregnancies, no current s/s, will monitor and VTE PPX with lovenox PCP: Kenneth DYER Code: Full IVF: SL Diet: CC VTE: Lovenox Dispo: Sirs without a source, cont IV abx until Cx negative at 48 hours, suspected viral etiology, anticipate discharge in next 1-2 days pending clinical course. Addendum - Attending - Attending Attestation Date/Time: 04/20/19 6233 I personally evaluated the patient and discussed the management with the team. I agree with the History, Examination, Assessment and Plan documented above with any addition or exceptions noted below.
[2019-04-17 06:20] LABS: Band 13 % (5-11); Eosinophils 2 % (0-10); Hemoglobin 11.6 g/dL (12.0-16.0); Lymphocytes 23 % (21-51); MDiff Complete? YES; Mean Corpuscular HGB CONC 33.3 g/dL (32.0-36.0); Mean Corpuscular Volume 77.9 fL (78.0-98.0); Mean Platelet Volume 7.8 fL (7.4-10.4); Metamyelocyte 2 % (0-0); Microcytosis SLIGHT = 6-15 cells (100X) (0-5/hpf); Monocytes 5 % (0-10); Neutrophil 55 % (42-75); Platelet Count 238 thou/uL (130-400); Platelet Morphology Comment Appears Adequate; RBC Distribution Width 13.6 % (11.5-14.5); Red Blood Cell (RBC) Count 4.45 mill/uL (4.20-5.40); White Blood Cell (WBC) Count 5.1 thou/uL (4.8-10.8)
[2019-04-17 06:28] LABS: Anion Gap 11 mmol/L (10-20); BUN (Urea Nitrogen) 6 mg/dL (7.0-18.7); Calc. Creatinine Clearance 179 mL/min (70-130); Calcium 8.5 mg/dL (7.8-10.44); Carbon Dioxide 24 mmol/L (22-29); Chloride 107 mmol/L (98-107); Estimated GFR-MDRD Greater than 90; Glucose 109 mg/dL (70-105); Potassium 3.1 mmol/L (3.5-5.1); Sodium 139 mmol/L (136-145)
[2019-04-17] MEDS ORDERED: Potassium Chloride 20 MEQ TAB PO SCH (08:00)
[2019-04-17] MEDS: Lisinopril 10 MG TAB PO SCH (08:51)
[2019-04-17] MEDS: Acetaminophen 325 MG TAB PO PRN (08:51)
[2019-04-17] MEDS: Enoxaparin Sodium 40 MG/0.4 ML SYRINGE SC SCH (08:51)
[2019-04-17 11:11] VITALS: BP 126/85; TEMP 97.9
[2019-04-17 22:08] LABS: Chlam.trachomatis by PCR,Urine Not Detected (NotDetected)
--- NOTE | 2019-04-18 02:37 | DIS ---
DATE OF ADMISSION: 04/15/2019 DATE OF DISCHARGE: 04/17/2019 RESIDENT: Karthik Saldana MD ADMITTING ATTENDING: Xavi Flood MD DISCHARGE ATTENDING: Xavi Flood MD. CONSULTS: None. PROCEDURES: 1. Chest x-ray on 04/15/2019, demonstrating no active intrathoracic disease. 2. Abdomen ultrasound on 04/15/2019, demonstrating fatty change of liver which appears borderline size as well as sludge within the gallbladder fundus region without any definitive stones. Common duct is normal in caliber in the [address] of abdomen and pelvis on 04/15/2019, demonstrating right ovarian cyst 3.3 cm in size. Small amount of biliary sludge in the gallbladder lumen consistent with chronic gallbladder dyskinesis. No evidence of acute biliary obstruction. PRIMARY DIAGNOSES: Systemic inflammatory response syndrome without a source, suspected viral gastroenteritis. SECONDARY DIAGNOSES: 1. Hypokalemia and hypomagnesemia. 2. Noncardiac chest pain. 3. Insulin-dependent type 2 diabetic. 4. Hypertension. DISCHARGE MEDICATIONS: 1. Metformin 1000 mg p.o. daily. 2. Novolin 70/30, use as directed. 3. Lisinopril 2.5 mg p.o. daily. 4. Diltiazem 180 mg p.o. daily. 5. Ferrous sulfate 325 mg p.o. daily. 6. vitamin 1 tablet p.o. daily. HISTORY OF PRESENT ILLNESS AND HOSPITAL COURSE: The patient is a 34-year-old female who presented with a 2-day history of diffuse myalgias, fevers, chills, and general malaise. She endorses GI upset and diarrhea as well as vomiting and nausea. No melena. No hematochezia. No chest pain, shortness of breath, sinus congestion, or headache. Of note, the patient did increase her metformin to 1000 mg b.i.d. and states that this was concurrent with her GI upset. In emergency department, she was found to meet SIRS criteria with a fever of 102, heart rate of 128. She was given cefepime, Flagyl, and vancomycin and admitted for SIRS without a source. On the floor, the patient was monitored closely. She initially spiked another fever of 102 upon admission. Antibiotics were continued. The source of infection was searched. However, the patient did not have any urinary symptoms. No skin lesions. No recent travel. No known sick contacts. No upper respiratory symptoms. No new sexual partners. No symptoms. The patient was flu negative. The patient was HIV negative. Blood culture and urine cultures were obtained. Throughout hospitalization, the patient's diarrhea resolved. Abdominal pain also resolved. The patient remained fever free for over 24 hours and vital signs remained stable. Blood culture and urine culture were no growth to date. Gonorrhea chlamydia was pending at time of discharge. I have suspected that her SIRS was secondary to viral gastroenteritis and thus, the patient was stable for discharge. Antibiotics were discontinued. Discharge plan was discussed with the patient who voiced agreement understanding. Alarm and return precautions were given. Throughout her hospitalization, the patient also experienced some mild hypokalemia and hypomagnesemia, this was replaced and corrected and the patient will need continued outpatient monitoring. The patient also had an episode of noncardiac chest pain likely secondary to musculoskeletal versus anxiety. EKG and troponins were all negative and symptoms resolved. For the patient's chronic medical conditions, we will continue with her home insulin regimen as well as her home hypertensive medications. At the time of discharge, the patient had been afebrile for greater than 24 hours. She was ambulating well, tolerating p.o. intake and had no new symptoms. DISCHARGE PLAN: Discussed with the patient, she will need to follow up with primary care physician within one week of discharge. She voiced agreement and understanding of the discharge plan. All questions were answered appropriately. Of note, the patient will need a repeat BMP as an outpatient. DISPOSITION: Stable. DISCHARGE INSTRUCTIONS: 1. Location: Home. 2. Diet: Diabetic. 3. Activity: As tolerated. 4. Followup: The patient will follow up with primary care physician at [facility] within 1 week of discharge. Job ID: [id number]
--- NOTE | 2019-04-20 07:37 | PQF ---
Michael Vaughan BRANDON [id number] CLINICAL DOCUMENTATION CLARIFICATION FORM: POST DISCHARGE Addendum to original discharge summary date: ____ Late entry note date: __ DATE: 04/20/2019 ATTN:JENS SHAHID Please exercise your independent, professional judgment in responding to the clarification form. Clinical indicators are provided on the bottom of this form for your review Please check appropriate box(s): Conflicting documentation was noted in the Medical Record, please clarify if patient is being treated/monitored for: [x ] Sepsis secondary to gastroenteritis [ ] SIRS only [ ] Other diagnosis [ ] Unable to determine For continuity of documentation, please document condition throughout progress notes and discharge summary. Thank You. CLINICAL INDICATORS - SIGNS / SYMPTOMS/ LABS - Systemic inflammatory response syndrome without a source, suspected viral gastroenteritis- DS, 04/17, JENS SHAHID - SIRS was secondary to viral gastroenteritis- DS, 04/17, JENS SHAHID - Sepsis without source- Family medicine H&P, 04/15, JENS SHAHID - no signs of source of acute infection-Family medicine PN, 04/16, JENS SHAHID RISK FACTORS - Viral gastroenteritis- DS, 04/17, JENS SHAHID TREATMENT -Cefepime.IV- MAR, 04/15 to 04/17 -Vancomycin,IV- MAR, 04/16 to 04/17 (This form is maintained as a part of the permanent medical record) 2014 [employer] All Rights Reserved [email or web address]
== END 2019-04-17 14:00 | disposition home or self-care (01) | DRG 872 ==
LOC: ERS 14:24 → SURG B 19:12
PROVIDERS: ADMIT Emergency Medicine; ATTEND Emergency Medicine
DX: A41.9 Sepsis, unspecified organism (principal); A08.4 Viral intestinal infection, unspecified; E87.6 Hypokalemia; R07.89 Other chest pain; E11.9 Type 2 diabetes mellitus without complications; I10 Essential (primary) hypertension; E83.42 Hypomagnesemia; F41.9 Anxiety disorder, unspecified; E66.9 Obesity, unspecified; N83.209 Unspecified ovarian cyst, unspecified side; K82.8 Other specified diseases of gallbladder; Z79.4 Long term (current) use of insulin; Z88.6 Allergy status to analgesic agent; Z88.0 Allergy status to penicillin; Z88.8 Allergy status to other drugs, medicaments and biological substances; Z91.018 Allergy to other foods; Z86.718 Personal history of other venous thrombosis and embolism; Z79.01 Long term (current) use of anticoagulants; Z68.39 Body mass index [BMI] 39.0-39.9, adult
CPT/HCPCS: 36415; 36416; 71045; 74177; 76705; 80048; 80053; 80202; 81003; 81015; 82330; 82803; 83605; 83690; 83735; 84100; 84145; 84484; 84703; 85007; 85025; 85027; 85652; 87040; 87086; 87389; 87491; 87591; 87633; 87804; 93005; 93010; 96365; 96367; 96375; J0692; J1650; J1815; J2405; J3490; Q0162; Q9967

== ENCOUNTER 2019-05-06 07:25 | Outpatient (CLI) | payer OTHER ==
--- NOTE | 2019-05-06 13:29 | NM ---
HEPATOBILIARY SCAN: HISTORY: Right upper quadrant pain. Hospital discharge followup. Biliary dyskinesia. RADIOPHARMACEUTICAL: 5 mCi Technetium 99m-mebrofenin was injected intravenously. FINDINGS: There is good tracer extraction by the liver with prompt excretion through the biliary tract and smal l bowel loops and normal filling of the gallbladder. The calculated gallbladder ejection fraction fo llowing an oral fatty meal measures 40%. IMPRESSION: Normal exam. POS: OFF
== END 2019-05-06 07:26 | disposition home or self-care (01) ==
LOC: NM 07:25
PROVIDERS: ATTEND Nurse Practitioner Family
DX: K82.8 Other specified diseases of gallbladder (principal)
CPT/HCPCS: 78227; A9537

== ENCOUNTER 2022-10-14 17:11 | Emergency (ER) | payer MEDICARE, OTHER ==
[2022-10-14 17:39] LABS: #Basophils 0.1 thou/uL (0.0-0.2); #Eosinphils 0.1 thou/uL (0.0-0.7); #Monocytes 0.5 thou/uL (0.11-0.59); #Neutrophils 5.4 thou/uL (1.40-6.50); %Basophils 0.6 % (0.0-1.0); %Eosinophils 1.3 % (0.0-10.0); %Lymphocytes 38.3 % (21.0-51.0); %Monocytes 5.2 % (0.0-10.0); %Neutrophils 54.4 % (42.0-75.0); Hematocrit 35.6 % (36.0-47.0); Hemoglobin 11.8 g/dL (12.0-16.0); Mean Corpuscular HGB CONC 33.1 g/dL (32.0-36.0); Mean Corpuscular Hemoglobin 26.5 pg (27.0-31.0); Mean Corpuscular Volume 79.8 fl (78.0-98.0); Mean Platelet Volume 9.5 fL (7.4-10.4); Platelet Count 353 10x3/uL (130-400); RBC Distribution Width 13.6 % (11.5-14.5); Red Blood Cell (RBC) Count 4.46 mill/uL (4.20-5.40)
[2022-10-14 18:04] LABS: ALT (SGPT) 27 U/L (8-55); AST (SGOT) 31 U/L (5-34); Albumin 4.2 g/dL (3.5-5.0); Alkaline Phosphatase 72 U/L (40-110); Anion Gap 14 mmol/L (10-20); BUN (Urea Nitrogen) 10 mg/dL (7.0-18.7); Bilirubin, Total 0.2 mg/dL (0.2-1.2); CK (CPK) 179 U/L (29-168); Calc. Creatinine Clearance 0 mL/min (70-130); Calcium 9.4 mg/dL (7.8-10.44); Carbon Dioxide 22 mmol/L (22-29); Chloride 107 mmol/L (98-107); Estimated GFR 91; Globulin 3.4 g/dL (2.4-3.5); Glucose 143 mg/dL (70-105); Lipase 34 U/L (8-78); Potassium 3.9 mmol/L (3.5-5.1); Protein, Total 7.6 g/dL (6.0-8.3); Sodium 139 mmol/L (136-145)
== END 2022-10-14 18:40 | disposition home or self-care (01) ==
LOC: ERS 17:11
DX: G43.909 Migraine, unspecified, not intractable, without status migrainosus (principal); R07.89 Other chest pain; E10.9 Type 1 diabetes mellitus without complications; I10 Essential (primary) hypertension; Z79.4 Long term (current) use of insulin
CPT/HCPCS: 71045; 80053; 82550; 83690; 83735; 84484; 85025; 93005

== ENCOUNTER 2023-01-13 10:04 | Emergency (ER) | payer OTHER ==
[2023-01-13] MEDS ORDERED: Methocarbamol 500 MG TAB ONE (11:11)
== END 2023-01-13 12:05 | disposition home or self-care (01) ==
LOC: ERS 10:04
DX: S16.1XXA Strain of muscle, fascia and tendon at neck level, initial encounter (principal); I10 Essential (primary) hypertension; E10.9 Type 1 diabetes mellitus without complications; V89.2XXA Person injured in unspecified motor-vehicle accident, traffic, initial encounter
CPT/HCPCS: 72040